=== PATIENT | male | born 2005 | race Caucasian/White ===

== ENCOUNTER → 2023-07-20 | Outpatient (CLI) | payer MEDICAID, SELFPAY ==
[2023-07-20] MEDS: Zolpidem Tartrate 5 MG Tablet PO (23:20)
== END | disposition home or self-care (01) ==
LOC: SL 20:17
PROVIDERS: Visit Provider Family Medicine
DX: G47.33 Obstructive sleep apnea (adult) (pediatric) (principal)
CPT/HCPCS: 95811